=== PATIENT | male | born 1940 | race Caucasian/White ===

== ENCOUNTER 2021-04-24 09:04 | Emergency (ER) | payer MEDICARE, BC ==
[2021-04-24 09:39] LABS: #Lymphocytes 0.6 thou/uL (1.20-3.40); #Monocytes 0.4 thou/uL (0.11-0.59); #Neutrophils 1.7 thou/uL (1.40-6.50); %Eosinophils 0.3 % (0.0-10.0); %Monocytes 14.7 % (0.0-10.0); Hemoglobin 13.8 g/dL (14.0-18.0); Mean Corpuscular HGB CONC 33.9 g/dL (32.0-36.0); Mean Corpuscular Hemoglobin 32.3 pg (27.0-31.0); Mean Corpuscular Volume 95.3 fL (78.0-98.0); Mean Platelet Volume 7.6 fL (7.4-10.4); Platelet Count 124 thou/uL (130-400); RBC Distribution Width 11.4 % (11.5-14.5); Red Blood Cell (RBC) Count 4.29 mill/uL (4.70-6.10); White Blood Cell (WBC) Count 2.6 thou/uL (4.8-10.8)
[2021-04-24 10:01] LABS: ALT (SGPT) 21 U/L (8-55); AST (SGOT) 22 U/L (5-34); Alkaline Phosphatase 68 U/L (40-110); Anion Gap 10 mmol/L (10-20); BUN (Urea Nitrogen) 17 mg/dL (8.4-25.7); Bilirubin, Total 0.3 mg/dL (0.2-1.2); Calc. Creatinine Clearance 0 mL/min (70-130); Calcium 8.6 mg/dL (7.8-10.44); Carbon Dioxide 29 mmol/L (23-31); Chloride 100 mmol/L (98-107); Globulin 2.7 g/dL (2.4-3.5); Glucose 97 mg/dL (83-110); Lipase 50 U/L (8-78); Potassium 4.8 mmol/L (3.5-5.1); Protein, Total 6.7 g/dL (5.8-8.1); Sodium 134 mmol/L (136-145)
[2021-04-24 19:51] LABS: SARS-CoV-2 PCR by NAA DETECTED (NotDetected)
== END 2021-04-24 12:13 | disposition home or self-care (01) ==
LOC: ERS 09:04
DX: U07.1 COVID-19 (principal); J12.82 Pneumonia due to coronavirus disease 2019; R55 Syncope and collapse; R29.700 NIHSS score 0; R00.1 Bradycardia, unspecified; Z85.828 Personal history of other malignant neoplasm of skin
CPT/HCPCS: 71045; 80053; 83690; 84484; 85025; 93005; 99284; U0003; U0005; 36415

== ENCOUNTER 2024-11-19 11:50 | Outpatient (CLI) | payer BC, MEDICARE, OTHER | END 2024-11-19 11:51 | disposition home or self-care (01) | LOC: SCSRAD 11:50 | PROVIDERS: ATTEND Family Medicine | DX: S99.912A Unspecified injury of left ankle, initial encounter (principal); M77.32 Calcaneal spur, left foot; M19.072 Primary osteoarthritis, left ankle and foot; M25.472 Effusion, left ankle; M67.874 Other specified disorders of tendon, left ankle and foot; E83.59 Other disorders of calcium metabolism ==